=== PATIENT | female | born 1985 | race Two or more races ===

== ENCOUNTER → 2016-12-23 | Outpatient (CLI) | payer OTHER ==
--- NOTE | ~2016-12-23 | US98 ---
[facility] A Service of [facility] & [facility] RADIOLOGY TEXT RESULTS PATIENT: MARYSOL COMBS LOCATION: [facility] : 89 UNIT #: [id number] AGE: [address]: Heather Palma SEX: F ORDER DR: [id number] [facility] [address] [place], [place] [address] [id number] O MR#: [id number] Acc #: [id number] NAME: MARYSOL COMBS : 1985 SEX: F STUDY DATE/TIME: 12/23/2016 13:13 UNIT: [facility] ROOM: STUDY DESCRIPTION: US Pelvic Non-OB Complete Attending Physician: Heather Palma A.P.R.N. Ordering Physician: Heather Palma A.P.R.N. Primary Care Physician: Heather Palma A.P.R.N. MEDICAL IMAGING REPORT This report is preliminary unless electronic signature is present EXAM Transabdominal pelvic ultrasound 12/23/2016 HISTORY 31-year-old female with complaints of diffuse pelvic pain since May 2016. Abnormal CT abdomen pelvis with left adnexal cystic lesion 06/01/2016. TECHNIQUE Transabdominal imaging only was performed. The patient deferred transvaginal imaging today. FINDINGS Uterus measures approximately 5.6 x 3 x 4.6 cm. No focal endometrial or myometrial abnormality is identified. Endometrial bilayer thickness is 4 mm. Right ovary measures about 1.4 x 1.8 x 3.7 cm, contains a dominant follicle or cyst measuring up to 1.1 x 1.4 x 1.5 cm. The right ovary demonstrates normal color and spectral Doppler flow. The left ovary measures 2.3 x 1.9 x 3.2 cm, and demonstrates normal color and spectral Doppler flow. A cyst or dominant follicle within the central left ovary measures 1.5 x 1.5 cm, significantly diminished since the 06/01/2016 examination where it measured up to 4.9 cm. No definite pelvic free fluid is identified. IMPRESSION 1. Small dominant follicles or cyst are seen within the each ovary, right measuring up to 1.4 cm, left measuring up to 1.5 cm. The left ovarian or adnexal cystic lesion described on 06/01/2016 has significantly diminished in size or essentially resolved. [facility] A Service of [facility] & [facility] RADIOLOGY TEXT RESULTS PATIENT: MARYSOL COMBS LOCATION: [facility] : 89 UNIT #: [id number] AGE: [address]: Heather Palma SEX: F ORDER DR: 2. Normal transabdominal appearance of the uterus and endometrium. 3. Normal flow was documented to each ovary. Dictated by... Jennifer Dunn M.D. THIS IS AN ELECTRONICALLY VERIFIED REPORT Jennifer Dunn M.D. at 12/24/2016 8:42 AM JOSE/shaye TD: 12/23/2016 21:38 JOB #: [id number] MEDICAL IMAGING REPORT COPY
== END | disposition home or self-care (01) ==
LOC: CWCC 12:52
DX: N83.02 Follicular cyst of left ovary (principal)
CPT/HCPCS: 76856